=== PATIENT | female | born 1955 | race Caucasian/White ===

== ENCOUNTER → 2017-12-06 11:30 | Outpatient (CLI) | payer OTHER, SELFPAY ==
[2017-12-06 12:26] LABS: Hematocrit 37.3 % (37-47); Hemoglobin 12.5 g/dl (12.0-15.0); Mean Corp Hgb Conc 33.5 g/gl (32-36); Mean Corpuscular Hgb 29.1 pg (27.0-32.0); Mean Corpuscular Volume 86.9 fL (81-99); Mean Platelet Vol. 8.6 fl (6.2-12.0); Platelet Count 278 K/mm3 (150-450); RBC Distribution Width CV 12.9 % (11.6-14.6); Red Blood Count 4.29 M/mm3 (4.2-5.4); White Blood Count 5.1 K/mm3 (4.4-11.0)
[2017-12-06 12:28] LABS: Scan Indicated on CBC? Y/N NO
[2017-12-06 12:56] LABS: ALB/GLOB Ratio 1.1 RATIO (0.9-2.4); AST(SGOT) 15 U/L (15-37); Alanine Aminotransfer ALT/SGPT 22 U/L (13-56); Albumin, Serum 3.9 g/dL (3.2-5.0); Alkaline Phosphatase 65 U/L (45-117); Anion Gap 7 (5-15); BUN 9 mg/dL (7-18); BUN/Creat Ratio 11.6 RATIO (10-20); Calcium,Total 9.3 mg/dL (8.5-10.1); Chloride 97 mmol/L (98-107); Creatinine, Serum 0.78 mg/dL (0.55-1.02); EST Glomerular Filtration Rate 79 mL/min (>60); Est Glom Filt Rate - Afr Amer 96 mL/min (>60); Globulin 3.4 g/dL (2.2-4.2); Glucose 87 mg/dL (74-106); Magnesium 1.9 mg/dL (1.6-2.6); Phosphorus 4.2 mg/dL (2.5-4.9); Potassium 4.5 mmol/L (3.5-5.1); Protein, Total 7.3 g/dL (6.4-8.2); Sodium Level 134 mmol/L (136-145)
[2017-12-06 13:03] LABS: Vitamin B12 396 pg/mL (211-911)
== END ==
PROVIDERS: Family Provider Family Medicine; PCP Family Medicine; Visit Provider Nurse Practitioner Acute Care
DX: G40.909 Epilepsy, unspecified, not intractable, without status epilepticus (principal)
CPT/HCPCS: 36415; 80053; 80177; 82607; 83735; 84100; 85027

== ENCOUNTER → 2018-01-09 14:44 | Outpatient (CLI) | payer OTHER, SELFPAY ==
--- NOTE | 2018-01-09 14:51 | RAD_ITS ---
STUDY: X-RAY - LEFT KNEE REASON FOR EXAM: Female, 62 years old. Pain. Fall. TECHNIQUE: 3 view(s) of the knee. COMPARISON: None. FINDINGS: There is an IM patrick through the length of the femur. Normal visualized proximal tibia and fibula. Normal proximal tibiofibular articulation. There is no demonstrated fracture. Normal medial femorotibial compartment. Normal lateral femorotibial compartment. Normal patellofemoral articulation. There is no demonstrated joint effusion. The soft tissue structures are unremarkable. RAD/Knee 3 Views IMPRESSION: Normal x-ray examination of the knee. Electronically Signed: Aguila Quinteros MD at 15:44 EDT , Service support ,
--- NOTE | 2018-01-09 14:51 | RAD_ITS ---
STUDY: X-RAY - LEFT ANKLE REASON FOR EXAM: Female, 62 years old. Pain. Fell down steps yesterday. TECHNIQUE: The view(s) of the ankle. COMPARISON: None. FINDINGS: Normal visualized distal tibia and fibula. Normal medial and lateral malleoli. Normal tibiotalar articulation and ankle mortise. Normal visualized talus and calcaneus. The visualized subtalar, talonavicular, calcaneocuboid and tarsal articulations are normal. The soft tissue structures are unremarkable. RAD/Ankle min 3 Views IMPRESSION: Normal x-ray examination of the ankle. Electronically Signed: Yobani Anderson DO at 15:36 EDT Tel [phone], Service support ,
== END ==
PROVIDERS: Family Provider Family Medicine; PCP Family Medicine; Visit Provider Family Medicine
DX: S89.92XA Unspecified injury of left lower leg, initial encounter (principal); S99.912A Unspecified injury of left ankle, initial encounter; W19.XXXA Unspecified fall, initial encounter
CPT/HCPCS: 73562; 73610

== ENCOUNTER → 2018-10-06 09:54 | Outpatient (CLI) | payer MEDICARE, BC, SELFPAY ==
--- NOTE | 2018-10-06 09:57 | RAD_ITS ---
STUDY: X-RAY - LEFT HIP REASON FOR EXAM: Female, 63 years old. Pain without injury TECHNIQUE: Frontal pelvis, frontal and frog-leg lateral left hip, frontal and lateral views of the left femur. COMPARISON: None. FINDINGS: No acute intrapelvic process is evident. There is however a somewhat prominent stool burden distributed within the observed portions of the large bowel. Correlate for any evidence of underlying constipation. Normal appearance of the lumbar spine, sacrum, SI joints, iliac crests, pubic rami. Bilateral femoral medullary patrick fixation. On the right, dynamic screw fixation. On the left, now fixation of the medullary patrick below the trochanter. Screw fixation hardware of the the femoral neck is not present. Cortical thickening proximal left femoral diaphysis across a presumed old fracture, now well healed, with mild residual deformity. Distal femoral medullary patrick appropriately fixated. Knee joint unremarkable. Bilaterally, there are only mild degenerative features of the hip articulations, minimal joint margin osteophytic spurring, no significant joint space narrowing, no significant degenerative features of the articular surfaces. RAD/HIP, UNI W/ Pelvis 2-3 Views IMPRESSION: Minimal DJD of the hip joints. Postsurgical changes as described. Healed fracture of the proximal left femoral diaphysis with mild residual deformity and cortical thickening. Electronically Signed: Ashish Spear MD at 10:39 EST Tel , Service support ,
== END ==
PROVIDERS: Family Provider Family Medicine; PCP Family Medicine; Referring Provider Physician Assistant; Visit Provider Physician Assistant
DX: M25.552 Pain in left hip (principal)
CPT/HCPCS: 73502

== ENCOUNTER → 2018-12-30 | Outpatient (CLI) | payer MEDICARE, BC, SELFPAY ==
[2018-12-30 10:54] LABS: Anion Gap 7 (5-15); BUN 10 mg/dL (7-18); BUN/Creat Ratio 12.5 RATIO (10-20); Calcium,Total 9.9 mg/dL (8.5-10.1); Chloride 102 mmol/L (98-107); Cholesterol 189 mg/dL (200); EST Glomerular Filtration Rate 77 mL/min (>60); Est Glom Filt Rate - Afr Amer 93 mL/min (>60); Glucose 82 mg/dL (74-106); High Density Lipoprotein 74 mg/dL; Potassium 4.4 mmol/L (3.5-5.1); Sodium Level 140 mmol/L (136-145); Thyroid Stim Hormone (TSH) 1.95 uIU/mL (0.358-3.74); Triglycerides 62 mg/dL; Very Low Density Lipoprotein 12 mg/dL (5-40)
[2018-12-30 11:36] LABS: Vitamin D,25 Hydroxy 28.4 ng/mL (29.95-100.01)
== END | disposition home or self-care (01) ==
LOC: MFPLAB 09:17
PROVIDERS: Family Provider Family Medicine; PCP Family Medicine; Referring Provider Family Medicine; Visit Provider Family Medicine
DX: Z00.00 Encounter for general adult medical examination without abnormal findings (principal)
CPT/HCPCS: 36415; 80048; 80061; 82306; 84443

== ENCOUNTER → 2020-09-20 10:37 | Outpatient (CLI) | payer MEDICARE, BC, SELFPAY ==
[2020-03-17 10:28] VITALS: BMI 29.8
[2020-09-20 12:13] LABS: Absolute Lymphocyte Count 1.22 X10^3/uL (0.83-4.51); Basophil# 0.04 X10^3/uL; Eosinophil# 0.02 X10^3/uL; Eosinophils% 0.5 % (0-5); Hematocrit 37.7 % (37-47); Hemoglobin 11.8 g/dL (12.0-15.0); Lymphocyte # 1.22 X10^3/ul (4.0); Lymphocyte % 30.4 % (19-41); Mean Corp Hgb Conc 31.3 g/dL (32-36); Mean Corpuscular Hgb 27.4 pg (27.0-32.0); Mean Corpuscular Volume 87.5 fL (81-99); Mean Platelet Vol. 9.3 fl (6.2-12.0); Monocyte# 0.67 X10^3/uL; Monocyte% 16.7 % (0-10); NRBC Flagged by Analyzer 0 % (0-5); Neutrophil # 2.03 X10^3/uL (2.7-7.7); Neutrophil % 50.7 % (47-70); Platelet Count 231 K/mm3 (150-450); RBC Distribution Width CV 13.4 % (11.6-14.6); Red Blood Count 4.31 M/mm3 (4.2-5.4)
== END ==
PROVIDERS: PCP Family Medicine; Referring Provider Family Medicine; Visit Provider Internal Medicine Rheumatology
DX: R71.0 Precipitous drop in hematocrit (principal)
CPT/HCPCS: 36415; 85025

== ENCOUNTER → 2021-04-26 06:23 | Outpatient (CLI) | payer MEDICARE, BC, SELFPAY ==
[2020-03-17 10:28] VITALS: BMI 29.8
--- NOTE | 2021-04-26 06:47 | MRI_ITS ---
STUDY: MRI BRAIN WITH AND WITHOUT CONTRAST REASON FOR EXAM: Female, 65 years old. BITEMPORAL VISUAL FIELD DEFECT TECHNIQUE: Standardized multiplanar fat and water weighted pulse sequences were obtained. IV 14cc dotarem was administered for the contrast portion of the examination. COMPARISON: None. FINDINGS: Normal size of the ventricles and extra-axial spaces for the patient''s age. There are a limited number of small white matter hyperintensities, distributed throughout the deep white matter tracts of the cerebral hemispheres, consistent with mild chronic white matter ischemic changes. Focal encephalomalacia and gliosis in the posterior left parietal lobe consistent with a chronic infarct or There is no evidence for recent intracranial ischemia or other cause of cytotoxic edema on diffusion weighted imaging (DWI). Normal T2* images of the brain without demonstrated susceptibility artifact. There is no demonstrated hemosiderin stain. Normal bilateral basal ganglia. Normal thalami. There is no extra-axial fluid accumulation. Normal flow voids within the major intracranial circulation suggesting patency by spin echo criteria. Normal venous enhancement. There is no enhancing intra-axial or extra-axial abnormality. Normal sella turcica, pituitary gland, infundibular stalk, optic chiasm and hypothalamus. Normal tectal plate and pineal gland. Normal midbrain, makenna and medulla. Normal cerebellum. Normal basal cisterns. Normal bilateral temporal bones. Normal bilateral internal auditory canals. No demonstrated orbital abnormality, within the constraints of a routine brain study. Normal visualized paranasal sinuses. Normal calvarium and skull base. Normal visualized soft tissue structures. Normal visualized upper cervical spine. MRI/Brain W/WO Contrast IMPRESSION: Involutional changes of the brain, as described above. No acute infarct. Electronically Signed: Ashish Blackburn MD at 8:41 EDT Tel , Service support ,
[2021-04-26 07:01] LABS: CREATININE FINGERSTICK 1.1 mg/dL (0.55-1.02)
== END ==
PROVIDERS: PCP Family Medicine; Referring Provider Ophthalmology; Visit Provider Ophthalmology
DX: H53.40 Unspecified visual field defects (principal)
CPT/HCPCS: 70553; A9575

== ENCOUNTER → 2021-06-22 10:29 | Outpatient (CLI) | payer MEDICARE, BC, SELFPAY ==
[2021-06-22 12:56] LABS: Anion Gap 5 (5-15); BUN 15 mg/dL (7-18); BUN/Creat Ratio 20.3 RATIO (10-20); Calcium,Total 9.3 mg/dL (8.5-10.1); Chloride 107 mmol/L (98-107); Cholesterol 193 mg/dL (200); Creatinine, Serum 0.74 mg/dL (0.55-1.02); EST Glomerular Filtration Rate 83 mL/min (>60); Est Glom Filt Rate - Afr Amer 100 mL/min (>60); Glucose 76 mg/dL (74-106); High Density Lipoprotein 69 mg/dL; Potassium 4.5 mmol/L (3.5-5.1); Sodium Level 138 mmol/L (136-145); Triglycerides 61 mg/dL; Very Low Density Lipoprotein 12 mg/dL (5-40)
[2021-06-22 13:01] LABS: Vitamin D,25 Hydroxy 46.8 ng/mL
== END ==
PROVIDERS: PCP Family Medicine; Referring Provider Family Medicine; Visit Provider Family Medicine
DX: Z00.00 Encounter for general adult medical examination without abnormal findings (principal); E78.00 Pure hypercholesterolemia, unspecified; E55.9 Vitamin D deficiency, unspecified
CPT/HCPCS: 36415; 80048; 80061; 82306

== ENCOUNTER → 2022-02-28 | Outpatient (CLI) | payer MEDICARE, BC, SELFPAY ==
--- NOTE | 2022-02-28 15:19 | STRESSREP ---
Stress Test Report Pharmacologic myocardial perfusion stress test. 66-year-old lady with a history of chest pain. Stress protocol: Resting EKG demonstrates normal sinus rhythm with a rate of 93 bpm normal intervals are noted. Resting blood pressure is 142/90 mmHg. 0.4 mg of regadenoson was infused per usual protocol followed by Intravenous saline flush injection continuous EKG monitoring was performed. At rest there were no ST or T wave changes noted to suggest abnormal flow reserve and at peak infusion nonspecific ST changes were noted with did not meet the criteria for ischemia. No clinical angina was noted. Myocardial perfusion protocol. 12.0 mCi of technetium 99m sestamibi was injected at rest. 0.4 mg of regadenoson was infused per usual protocol. At peak infusion 33.0 mCi of technetium 99m sestamibi was injected stress images were obtained stress and rest images were reconstructed and compared in the short axis vertical long horizontal long axis. Gated images were also obtained per Perfusion SPECT analysis: Review of the stress images demonstrate normal uptake of tracer noted in all areas of the myocardium. The resting images similar demonstrate normal uptake of tracer noted in all areas of the myocardium. No areas of reversibility are noted to suggest ischemia and no previous infarct is noted. Gated SPECT analysis: The gated ejection fraction is over 75%. Conclusion: Normal pharmacologic myocardial perfusion stress test. Preserved ejection fraction.
== END | disposition home or self-care (01) ==
LOC: CVS 07:18
PROVIDERS: PCP Family Medicine; Referring Provider Family Medicine; Visit Provider Family Medicine
DX: R06.02 Shortness of breath (principal)
CPT/HCPCS: 78452; 93017; A9500; A4216; J2785

== ENCOUNTER → 2022-05-03 | Outpatient (CLI) | payer MEDICARE, BC, SELFPAY | END | disposition home or self-care (01) | PROVIDERS: PCP Family Medicine; Visit Provider Family Medicine | DX: Z20.822 Contact with and (suspected) exposure to COVID-19 (principal) | CPT/HCPCS: 87635; U0003; U0005 ==

== ENCOUNTER → 2022-05-08 | Outpatient (CLI) | payer MEDICARE, BC, SELFPAY ==
--- NOTE | 2022-05-08 14:46 | RAD_ITS ---
STUDY: X-RAY CHEST REASON FOR EXAM: Female, 66 years old. ACUTE BRONCHITIS TECHNIQUE: XR Chest 2 Views COMPARISON: None FINDINGS: There is no demonstrated pleural abnormality. There is a hiatal hernia. Normal size heart. Normal mediastinum and philip. Normal visualized pulmonary arteries. There is atherosclerotic calcification of the aortic arch with tortuosity. There are diffuse degenerative changes of the visualized thoracic spine. There is degenerative osteoarthritis of the bilateral shoulders. There is no demonstrated abnormality of the visualized soft tissue structures of the upper abdomen. RAD/Chest PA and Lateral IMPRESSION: There are no acute findings. Electronically Signed: Christian Dwyer MD at 16:52 EDT ,
== END | disposition home or self-care (01) ==
LOC: MTRAD 14:45
PROVIDERS: PCP Family Medicine; Referring Provider Family Medicine; Visit Provider Family Medicine
DX: J20.9 Acute bronchitis, unspecified (principal)
CPT/HCPCS: 71046

== ENCOUNTER → 2023-02-19 | Outpatient (CLI) | payer MEDICARE, BC, SELFPAY ==
[2023-02-19 12:37] LABS: Anion Gap 6 (5-15); BUN 16 mg/dL (7-18); BUN/Creat Ratio 15.7 RATIO (10-20); Calcium,Total 10.5 mg/dL (8.5-10.1); Chloride 104 mmol/L (98-107); Cholesterol 181 mg/dL (200); Creatinine, Serum 1.02 mg/dL (0.55-1.02); EST Glomerular Filtration Rate 57 mL/min (>60); Est Glom Filt Rate - Afr Amer 69 mL/min (>60); Glucose 96 mg/dL (74-106); High Density Lipoprotein 76 mg/dL; Potassium 4.4 mmol/L (3.5-5.1); Sodium Level 138 mmol/L (136-145); Triglycerides 58 mg/dL; Very Low Density Lipoprotein 12 mg/dL (5-40)
[2023-02-21 09:09] LABS: KEPPRA (LEVETIRACETAM) 22.8 ug/mL (10.0-40.0)
== END | disposition home or self-care (01) ==
LOC: MFPLAB 09:42
PROVIDERS: PCP Family Medicine; Visit Provider Family Medicine
DX: I10 Essential (primary) hypertension (principal); R56.9 Unspecified convulsions
CPT/HCPCS: 36415; 80048; 80061; 80177

== ENCOUNTER → 2023-08-12 | Outpatient (CLI) | payer MEDICARE, BC, SELFPAY ==
[2023-08-12 11:29] LABS: Absolute Lymphocyte Count 1.17 X10^3/uL (0.83-4.51); Absolute Neutrophil Count 2.2 X10^3/uL (2.0-7.7); Basophil# 0.05 X10^3/uL; Basophil% 1.2 % (0-1); Eosinophil# 0.01 X10^3/uL; Eosinophils% 0.2 % (0-5); Hematocrit 38.1 % (37-47); Hemoglobin 10.8 g/dL (12.0-15.0); Lymphocyte # 1.17 X10^3/ul (0.83-4.51); Lymphocyte % 28.9 % (19-41); Mean Corp Hgb Conc 28.3 g/dL (32-36); Mean Corpuscular Volume 77.8 fL (81-99); Mean Platelet Vol. 9.5 fl (6.2-12.0); Monocyte# 0.56 X10^3/uL; Monocyte% 13.8 % (0-10); NRBC Flagged by Analyzer 0 % (0-5); Neutrophil # 2.23 X10^3/uL (2.7-7.7); Neutrophil % 55.2 % (47-70); Platelet Count 257 K/mm3 (150-450); RBC Distribution Width CV 15.9 % (11.6-14.6); RBC Distribution Width SD 45.1 fl (35.1-43.9); White Blood Count 4.1 K/mm3 (4.4-11.0)
[2023-08-12 12:06] LABS: Anion Gap 7 (5-15); BUN 18 mg/dL (7-18); BUN/Creat Ratio 21.2 RATIO (10-20); Calcium,Total 8.9 mg/dL (8.5-10.1); Chloride 105 mmol/L (98-107); Cholesterol 171 mg/dL (200); Creatinine, Serum 0.85 mg/dL (0.55-1.02); EST Glomerular Filtration Rate 70 mL/min (>60); Est Glom Filt Rate - Afr Amer 85 mL/min (>60); Glucose 99 mg/dL (74-106); High Density Lipoprotein 79 mg/dL; Iron 26 ug/dL (50-170); Iron Binding Capacity,Total 404 ug/dL (250-450); PERCENT IRON SATURATION 6.4 % (15.0-55.0); Potassium 4.2 mmol/L (3.5-5.1); Sodium Level 138 mmol/L (136-145); Triglycerides 58 mg/dL; Very Low Density Lipoprotein 12 mg/dL (5-40)
== END | disposition home or self-care (01) ==
LOC: MFPLAB 09:29
PROVIDERS: PCP Family Medicine; Visit Provider Family Medicine
DX: D64.9 Anemia, unspecified (principal); R03.0 Elevated blood-pressure reading, without diagnosis of hypertension
CPT/HCPCS: 36415; 80048; 80061; 83540; 83550; 85025

== ENCOUNTER → 2023-10-17 | Outpatient (CLI) | payer MEDICARE, BC, SELFPAY ==
--- OUTSIDE RECORDS SUMMARY | 2023-10-17 12:20 | XMS RPT_ITS | CCD ---
Author Name Unknown Address [address] [facility] [address] [place] [address] Organization [facility] Care Team Providers Care Senior Application Software Engineer Name Role Phone Tanya GLASGOW, Shamir Cui Primary Care Provider 1( [phone] SHAMIR DORSEY Primary Care Unavailable DIANE LOCKHART JR Attending Unavailable Allergies Allergy Classification Reported Allergen(s) Allergy Type Date of Onset Reaction(s) Facility (7 sources) Dicyclomine; Translations: [DICYCLOMINE HCL] Drug Allergy 07-04-2005 [facility] Work Phone: (7 sources) LORazepam; Translations: [LORAZEPAM] Drug Allergy 07-04-2005 [facility] Work Phone: (7 sources) Naproxen; Translations: [NAPROXEN] Drug Allergy 06-20-2005 [facility] Work Phone: Medications Current Medications Medication Drug Class(es) Dates Sig (Normalized) Sig (Original) levETIRAcetam 1000 mg oral tablet (10 sources) Start: 03-21-2023 End: 06-23-2024 take 1 tablet by mouth twice daily levETIRAcetam (KEPPRA) 1,000 mg tablet Indications: Partial seizure (HCC) Take 1 tablet by mouth two times a day. 180 tablet 3 06/24/2023 06/23/2024 Active Completed/Discontinued Medications Medication Drug Class(es) Dates Sig (Normalized) Sig (Original) Nrsg-Tobpe-Chmrxai-Lisa t-Mv,Min 5,000 mcg-100mg -50 mg-250 mcg ORAL Tab (6 sources) take 1 tablet by once daily Dfge-Yjcym-Gwthczt-L ut-Mv,Min 5,000 mcg-100mg -50 mg-250 mcg ORAL Tab Take by mouth. Take one(1) tablet daily. 0 Active Problems Active Problems Problem Classification Problem Date Documented Da te Episodic/Chronic Disorders of lipid metabolism (6 sources) Hyperlipidemia; Translations: [Hyperlipidemia, unspecified] Onset: 9 07-18-2009 Chronic Epilepsy; convulsions (12 sources) Partial seizure; Translations: [Unspecified convulsions] Episodic Esophageal disorders (6 sources) Gastroesophageal reflux disease; Translations: [Gastro-esophageal reflux disease without esophagitis] Onset: 7 11-08-2006 Chronic Headache; including migraine (6 sources) Migraine; Translations: [Migraine, unspecified, not intractable, without status migrainosus] Onset: 9 07-18-2009 Chronic Mood disorders (6 sources) Chronic depressive personality disorder; Translations: [Dysthymic disorder] 07-04-2005 Chronic Osteoarthritis (6 sources) Degenerative joint disease involving multiple joints; Translations: [Polyosteoarthritis, unspecified] 07-04-2005 Chronic Other gastrointestinal disorders (6 sources) Irritable bowel syndrome; Translations: [Irritable bowel syndrome without diarrhea] 07-04-2005 Chronic Residual codes; unclassified (1 source) Insomnia; Translations: [Insomnia, unspecified] 06-24-2023 Episodic Past or Other Problems Problem Classification Problem Date Documented Date Episodic/Chronic Allergic reactions (18 sources) Radiation-induced dermatosis; Translations: [Other skin changes due to chronic exposure to nonionizing radiation] Onset: 05-31-2008 05-31-2008 Episodic Fracture of lower limb (6 sources) Closed fracture of shaft of femur; Translations: [Unspecified fracture of shaft of unspecified femur, initial encounter for closed fracture] Onset: 04-26-2009 04-26-2009 Episodic Mycoses (6 sources) Pityriasis versicolor; Translations: [Pityriasis versicolor] Onset: 05-31-2008 05-31-2008 Episodic Other and unspecified benign neoplasm (12 sources) Dysplastic nevus of trunk; Translations: [Melanocytic nevi of trunk] Onset: 12-05-2010 12-05-2010 Episodic Other and unspecified benign neoplasm (12 sources) Melanocytic nevus of trunk; Translations: [Melanocytic nevi of trunk] Onset: 12-05-2010 12-05-2010 Episodic Other and unspecified benign neoplasm (6 sources) Melanocytic nevus of face; Translations: [Melanocytic nevi of unspecified part of face] Onset: 08-23-2011 08-23-2011 Episodic Other and unspecified benign neoplasm (6 sources) Senile angioma; Translations: [Hemangioma of skin and subcutaneous tissue] Onset: 08-23-2011 08-23-2011 Episodic Other and unspecified benign neoplasm (6 sources) Melanocytic nevus of lower limb; Translations: [Melanocytic nevi of unspecified lower limb, including hip] Onset: 03-07-2012 03-07-2012 Episodic Other and unspecified benign neoplasm (6 sources) Dermatofibroma of left lower limb; Translations: [Other benign neoplasm of skin of left lower limb, including hip] Onset: 03-07-2012 03-07-2012 Episodic Other connective tissue disease (6 sources) Pain in limb; Translations: [Pain in unspecified limb] Onset: 04-26-2009 04-26-2009 Episodic Other connective tissue disease (6 sources) Lateral epicondylitis; Translations: [Lateral epicondylitis, unspecified elbow] Onset: 05-02-2009 05-02-2009 Episodic Other connective tissue disease (6 sources) Enthesopathy of hip region; Translations: [Other specified enthesopathies of unspecified lower limb, excluding foot] Onset: 05-12-2009 05-12-2009 Episodic Other inflammatory condition of skin (4 sources) Itching of skin; Translations: [Pruritus, unspecified] Onset: 12-14-2012 12-14-2012 Episodic Other inflammatory condition of skin (2 sources) Pruritus, unspecified; Translations: [Unspecified pruritic disorder] Onset: 12-14-2012 12-14-2012 Episodic Other skin disorders (6 sources) Disorder of skin pigmentation; Translations: [Disorder of pigmentation, unspecified] Onset: 05-31-2008 05-31-2008 Episodic Other skin disorders (6 sources) Seborrheic keratosis; Translations: [Other seborrheic keratosis] Onset: 12-05-2010 12-05-2010 Episodic Other skin disorders (12 sources) Skin tag; Translations: [Unspecified hypertrophic and atrophic conditions of skin] Onset: 12-05-2010 12-05-2010 Episodic Other skin disorders (6 sources) Solar lentigo; Translations: [Other melanin hyperpigmentation] Onset: 12-05-2010 12-05-2010 Episodic Other skin disorders (6 sources) Scar; Translations: [Scar conditions and fibrosis of skin] Onset: 08-23-2011 08-23-2011 Episodic Other skin disorders (6 sources) Hypertrophic scar; Translations: [Hypertrophic scar] Onset: 08-23-2011 08-23-2011 Episodic Other skin disorders (6 sources) Keloid scar; Translations: [Hypertrophic scar] Onset: 12-14-2012 12-14-2012 Episodic Spondylosis; intervertebral disc disorders; other back problems (6 sources) Low back pain; Translations: [Lumbago] Onset: 02-10-2009 02-10-2009 Episodic Viral infection (6 sources) Postherpetic neuralgia; Translations: [Other postherpetic nervous system involvement] Onset: 12-14-2012 12-14-2012 Episodic Results Test Name Value Interpretation Reference Range Facil ity Vital Signs Date Time Vital Sign Value Performing Clinician Faci lity 06-24-2023 14:20-0400 Body weight 74.21 kg Diane Lockhart Jr., MD Work Phone: [facility] 06-24-2023 14:20-0400 Diastolic blood pressure 84 mm[Hg] Diane Lockhart Jr., MD Work Phone: [facility] 06-24-2023 14:20-0400 Heart rate 94 /min Diane Lockhart Jr., MD Work Phone: [facility] 06-24-2023 14:20-0400 Respiratory rate 16 /min Diane Lockhart Jr., MD Work Phone: [facility] 06-24-2023 14:20-0400 SaO2% (BldA) [Mass fraction] 96 % Diane Lockhart Jr., MD Work Phone: [facility] 06-24-2023 14:20-0400 Systolic blood pressure 136 mm[Hg] Diane Lockhart Jr., MD Work Phone: [facility] Encounters Encounter Date Encounter Type Care Provider Facility Start: 06-24-2023 End: 06-24-2023 ambulatory SHAMIR DORSEY Facility:[facility] Start: 06-24-2023 End: 06-24-2023 Patient encounter procedure Diane Lockhart MD Work Phone: Neurology Procedures Date Procedure Procedure Detail Performing Clinician Start: 07-19-2009 Lipid 1996 panel - S sumit or Plasma Diane Lockhart Jr., MD Work Phone: Start: 06-30-2008 Mammography Diane whitehead Jr., MD Work Phone: Start: 04-04-2007 Colonoscopy Diane whitehead Jr., MD Work Phone: Plan of Treatment Date Care Activity Detail Author Start: 11-02-2025 Urine microalbumin profile [facility] Start: 05-10-2023 Covid-19 Vaccine () Covid-19 Vaccine () [facility] Start: 05-10-2023 Influenza vaccination INFLUENZA (#1) [facility] Start: 03-28-2023 DIABETES SCREEN DIABETES SCREEN [facility] Start: 03-28-2023 Diabetes Screening Diabetes Screenin g [facility] Start: 03-21-2023 End: 05-21-2023 CBC panel - Blood by Automated count CBC Lab Routine Partial seizure (HCC) Expected: 03/21/2023, Expires: 05/21/2023 [facility] Work Phone: Immunizations Immunization Date Immunization Notes Care Provider Fa meganty 06-08-2021 influenza, high-dose , quadrivalent vaccine (FLUZONE HIGH DOSE QUADRIVALENT) Diane Lockhart Jr., MD Work Phone: [facility] 12-14-2020 zoster vaccine recombinant Diane Lockhart Jr., MD Work Phone: [facility] 11-17-2020 COVID-19 vaccine, fu ll dose (MODERNA) Diane Lockhart Jr., MD Work Phone: [facility] 07-28-2020 zoster vaccine recombinant Diane Lockhart Jr., MD Work Phone: [facility] 06-10-2020 influenza, high-dose , quadrivalent vaccine (FLUZONE HIGH DOSE QUADRIVALENT) Diane Lockhart Jr., MD Work Phone: [facility] 04-28-2020 pneumococcal conjuga te vaccine, 13 valent Diane Lockhart Jr., MD Work Phone: [facility] 06-04-2019 influenza, seasonal, injectable Diane Lockhart Jr., MD Work Phone: [facility] 06-16-2018 influenza, seasonal, injectable Diane Lockhart Jr., MD Work Phone: [facility] 06-21-2017 influenza, seasonal, injectable Diane Lockhart Jr., MD Work Phone: [facility] 05-30-2016 influenza, seasonal, injectable Diane Lockhart Jr., MD Work Phone: [facility] 11-02-2015 tetanus toxoid, redu sophie diphtheria toxoid, and acellular pertussis vaccine, adsorbed Diane Lockhart Jr., MD Work Phone: [facility] 11-07-2010 pneumococcal polysaccharide vaccine, 23 valent Diane Lockhart Jr., MD Work Phone: [facility] 07-16-2007 influenza virus vacc ine, unspecified formulation Diane Lockhart Jr., MD Work Phone: [facility] Work Phone: 05-07-2007 tetanus toxoid, redu sophie diphtheria toxoid, and acellular pertussis vaccine, adsorbed Diane Lockhart Jr., MD Work Phone: [facility] Work Phone: 07-22-2006 influenza virus vacc ine, unspecified formulation Diane Lockhart Jr., MD Work Phone: [facility] Work Phone: Payers Date Payer Category Payer Medicare MEDICARE MEDICAR E A AND B [id number] 2018-Present [phone] [address] [address] [place] [address] Medicare [id number] 2018 Medicare MEDICARE MEDICAR E A AND B [id number] 2018-Present [phone] [place] [address] Medicare [id number] 2018 Medicare [id number] 2018 Medicare [id number] 2018 Unknown GREG GARZA ME DICARE SUPPLEMENT [id number] 2018-Present [phone] [address] [place] [address] Indemnity [id number] 2018 Unknown GREG GARZA ME DICARE SUPPLEMENT [id number] 2018-Present [phone] [address] [place] [id number] Indemnity [id number] Social History Date Type Detail Facility Tobacco smoking stat us NHIS Never smoked tobacco [facility] Start: 09-18-2021 End: 06-24-2023 Alcohol intake Current non-drinker of alcohol (finding) [facility] Start: 1955 Sex Assigned At Not on file [facility] Start: 08-14-2020 End: 06-24-2023 Gender identity Not on file [facility] Start: 08-14-2020 End: 06-24-2023 [facility] (1-10 0), lower number is lower risk Not on file [facility] Clinical Notes 04-24-2005 to 06-24-2023 Diane Lockhart Jr., MD - 06/24/2023 2:43 PM Teresa Marcus LPN - 06/24/2023 2:14 PM EDTTelephone Encounter - Diane Lockhart Jr., MD - 03/21/2023 10:46 AM EDT Note Date & Type Note Facility 06-24-2023 Note HNO ID: [id number] Author: Diane Lockhart Jr., MD Service: ? Author Type: Physician Type: Progress Notes Filed: 06/24/2023 3:28 PM Note Text: ESTABLISHED PATIENT VISIT CHIEF COMPLAINT: Follow up HISTORY OF PRESENT ILLNESS: Chidi Hardin is a 67 year old female, with a PMH significant for and per last office visit of 09/18/21: 1. Insomnia, unspecified type - ICD9: 780.52, ICD10: G47.00 (primary diagnosis) 2. Parasomnia, unspecified type - ICD9: 307.47, ICD10: G47.50 Patient not wanting any further workup for current or prior sleep complaints. With weight gain, concern for TARA, but pt declines HSAT. Discussed referral to sleep student records specialist for insomnia but pt declines. Patient wanting no additional sleep workup. 3. 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 Etiology remains unknown. Complex migraines vs seizures. Have treated as latter given additional medical history. AEDs overall improved frequency but of late no significant influence on symptoms. Not wanting additional workup. Will continue Keppra, but will lower dose to 500mg in AM and 1000mg in PM given pt feels no significant effect on condition at higher dosing. 4. Weight gain - ICD9: 783.1, ICD10: R63.5 Etiology unknown but appears to not be directly related to increase in meds at prior visit, as pt lowered dosing immediately and still gained weight over following months. Will check for possible thyroid abnormality with TSH and T4. Labs otherwise received and reviewed from Dr. Dorsey's office. Weight loss since last visit. Patient states episodes thought to be seizures are a little worse. States with some of them, she feels it coming, sits down, gets hot, and then gets waves that come over her and feels ill. Can be just sitting and it happens. Feels like heart rate speeds up. Wiped out afterwards. States feels like something occurs everyday but bad ones about once per week. Sometimes notes a certain smell before episode. No loc. Eye doctor had patient undergo MRI brain due to worsening of monocular vision deficit. Per patient, MRI unremarkable. Insomnia persist. Going to bed about MN and tired. Takes up to 2 hours to fall asleep. Sometimes gets up and watches tv. No discomfort. Cannot turn brain off. Tried Unisom since last visit. Wakes about 7-8AM. Feels read to go upon waking unless read bad night of difficulties falling asleep. REVIEW OF SYSTEMS GENERAL:No weight loss, malaise or fevers. HEENT:Negative for frequent or significant headaches, No changes in hearing or vision, no nose bleeds or other nasal problems RESPIRATORY: Negative for cough, wheezing or shortness of breath. CARDIOVASCULAR: Negative for chest pain, leg swelling or palpitations. GASTROINTESTINAL: Negative for abdominal discomfort, blood in stools or black stools or change in bowel habits GENITOURINARY: No history of dysuria, frequency or incontinence MUSCULOSKELETAL: Negative for joint pain or swelling, back pain or muscle pain. NEUROLOGIC:Negative for focal numbness or weakness, headaches and dizziness or syncope, vision changes, speech/languag changes - EXCEPT that as per HPI above. LAB/IMAGING: Those performed since patient's last visit have been reviewed. WBC (k/uL) Date Value 03/28/2020 6.59 RBC (m/uL) Date Value 03/28/2020 4.43 Hemoglobin (g/dL) Date Value 03/28/2020 12.7 Hematocrit (%) Date Value 03/28/2020 39.3 MCV (fL) Date Value 03/28/2020 88.7 MCH (pG) Date Value 03/28/2020 28.7 MCHC (g/dL) Date Value 03/28/2020 32.3 RDW-CV (%) Date Value 03/28/2020 13.3 Platelet Count (k/uL) Date Value 03/28/2020 264 MPV (fL) Date Value 03/28/2020 9.3 Glucose (mg/dL) Date Value 03/28/2020 82 BUN (mg/dL) Date Value 03/28/2020 15 Creatinine (mg/dL) Date Value 03/28/2020 0.81 Sodium (mmol/L) Date Value 03/28/2020 137 Potassium (mmol/L) Date Value 03/28/2020 4.3 Chloride (mmol/L) Date Value 03/28/2020 101 CO2 (mmol/L) Date Value 03/28/2020 23 Protein, Total (g/dL) Date Value 03/28/2020 7.3 Albumin (g/dL) Date Value 03/28/2020 4.7 Calcium (mg/dL) Date Value 03/28/2020 10.4 (H) Alkaline Phosphatase (U/L) Date Value 03/28/2020 71 Bilirubin, Total (mg/dL) Date Value 03/28/2020 0.3 AST (U/L) Date Value 03/28/2020 20 ALT (U/L) Date Value 03/28/2020 21 MEDICATIONS: Omnp-Rhcbm-Oudgybm-Lut-Mv,Min 5,000 mcg-100mg -50 mg-250 mcg ORAL Tab Take by mouth. Take one(1) tablet daily. (Patient not taking: Reported on 06/24/2023) Ca Cmb No.1-Vit [id number] (VITAMIN D-3) 120-1,000-10 mg-unit-mg ORAL Tab Take by mouth. Take one tablet daily Calcium Cmb 2-D3-Min Ukf01-Rpq (CITRACAL + BONE DENSITY) 300-200-13.5 mg-unit-mg ORAL Tab Take one(1) tablet two(2) times daily. chlordiazepoxide 5 mg ORAL capsule Take 1 capsule by mouth three times daily as needed. (more content not included)... [facility] 06-24-2023 Note HNO ID: [id number] Author: Teresa Ortega LPN Service: ? Author Type: ? Type: Progress Notes Filed: 06/24/2023 3:28 PM Note Text: There is no data to display for this encounter [facility] 06-24-2023 History of Present illness Narrative ESTABLISHED PATIENT VISIT CHIEF COMPLAINT: Follow up HISTORY OF PRESENT ILLNESS: Chidi Hardin is a 67 year old female, with a PMH significant for and per last office visit of 09/18/21: 1. Insomnia, unspecified type - ICD9: 780.52, ICD10: G47.00 (primary diagnosis) 2. Parasomnia, unspecified type - ICD9: 307.47, ICD10: G47.50 Patient not wanting any further workup for current or prior sleep complaints. With weight gain, concern for TARA, but pt declines HSAT. Discussed referral to sleep student records specialist for insomnia but pt declines. Patient wanting no additional sleep workup. 3. 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 Etiology remains unknown. Complex migraines vs seizures. Have treated as latter given additional medical history. AEDs overall improved frequency but of late no significant influence on symptoms. Not wanting additional workup. Will continue Keppra, but will lower dose to 500mg in AM and 1000mg in PM given pt feels no significant effect on condition at higher dosing. 4. Weight gain - ICD9: 783.1, ICD10: R63.5 Etiology unknown but appears to not be directly related to increase in meds at prior visit, as pt lowered dosing immediately and still gained weight over following months. Will check for possible thyroid abnormality with TSH and T4. Labs otherwise received and reviewed from Dr. Dorsey's office. Weight loss since last visit. Patient states episodes thought to be seizures are a little worse. States with some of them, she feels it coming, sits down, gets hot, and then gets waves that come over her and feels ill. Can be just sitting and it happens. Feels like heart rate speeds up. Wiped out afterwards. States feels like something occurs everyday but bad ones about once per week. Sometimes notes a certain smell before episode. No loc. Eye doctor had patient undergo MRI brain due to worsening of monocular vision deficit. Per patient, MRI unremarkable. Insomnia persist. Going to bed about MN and tired. Takes up to 2 hours to fall asleep. Sometimes gets up and watches tv. No discomfort. Cannot turn brain off. Tried Unisom since last visit. Wakes about 7-8AM. Feels read to go upon waking unless read bad night of difficulties falling asleep. REVIEW OF SYSTEMS GENERAL:No weight loss, malaise or fevers. HEENT:Negative for frequent or significant headaches, No changes in hearing or vision, no nose bleeds or other nasal problems RESPIRATORY: Negative for cough, wheezing or shortness of breath. CARDIOVASCULAR: Negative for chest pain, leg swelling or palpitations. GASTROINTESTINAL: Negative for abdominal discomfort, blood in stools or black stools or change in bowel habits GENITOURINARY: No history of dysuria, frequency or incontinence MUSCULOSKELETAL: Negative for joint pain or swelling, back pain or muscle pain. NEUROLOGIC:Negative for focal numbness or weakness, headaches and dizziness or syncope, vision changes, speech/languag changes - EXCEPT that as per HPI above. LAB/IMAGING: Those performed since patient's last visit have been reviewed. WBC (k/uL) Date Value 03/28/2020 6.59 RBC (m/uL) Date Value 03/28/2020 4.43 Hemoglobin (g/dL) Date Value 03/28/2020 12.7 Hematocrit (%) Date Value 03/28/2020 39.3 MCV (fL) Date Value 03/28/2020 88.7 MCH (pG) Date Value 03/28/2020 28.7 MCHC (g/dL) Date Value 03/28/2020 32.3 RDW-CV (%) Date Value 03/28/2020 13.3 Platelet Count (k/uL) Date Value 03/28/2020 264 MPV (fL) Date Value 03/28/2020 9.3 Glucose (mg/dL) Date Value 03/28/2020 82 BUN (mg/dL) Date Value 03/28/2020 15 Creatinine (mg/dL) Date Value 03/28/2020 0.81 Sodium (mmol/L) Date Value 03/28/2020 137 Potassium (mmol/L) Date Value 03/28/2020 4.3 Chloride (mmol/L) Date Value 03/28/2020 101 CO2 (mmol/L) Date Value 03/28/2020 23 Protein, Total (g/dL) Date Value 03/28/2020 7.3 Albumin (g/dL) Date Value 03/28/2020 4.7 Calcium (mg/dL) Date Value 03/28/2020 10.4 (H) Alkaline Phosphatase (U/L) Date Value 03/28/2020 71 Bilirubin, Total (mg/dL) Date Value 03/28/2020 0.3 AST (U/L) Date Value 03/28/2020 20 ALT (U/L) Date Value 03/28/2020 21 MEDICATIONS: Abvc-Stjiv-Iljomoh-Lut-Mv,Min 5,000 mcg-100mg -50 mg-250 mcg ORAL Tab Take by mouth. Take one(1) tablet daily. (Patient not taking: Reported on 06/24/2023) Ca Cmb No.1-Vit [id number]-[id number] (VITAMIN D-3) 120-1,000-10 mg-unit-mg ORAL Tab Take by mouth. Take one tablet daily Calcium Cmb 2-D3-Min Cud96-Erh (CITRACAL + BONE DENSITY) 300-200-13.5 mg-unit-mg ORAL Tab Take one(1) tablet two(2) times daily. chlordiazepoxide 5 mg ORAL capsule Take 1 capsule by mouth three times daily as needed. (Patient not taking: Reported on 06/24/2023) chlordiazepoxide-clidinium 5-2.5 mg ORAL per capsule Take 2 capsules by mouth twice daily. (Patient not taking: Reported on 01/06/2021 ) citalopram 20 mg ORAL tablet Take 20 mg by mouth once daily. Take one(1) tablet daily. FERROUS SULFATE, BULK, MISC hydrOXYchloroQUINE (PLAQUENIL) 200 mg tablet Take 200 mg by mouth once daily. For 30 days hyoscyamine SR (LEVBID) 0.375 mg 12 hr tablet Take 0.375 mg by mouth twice daily. (Patient not taking: Reported on 09/18/2021 ) levETIRAcetam (KEPPRA) 1,000 mg tablet Take 1 tablet by mouth twice daily. melatonin 3 mg tablet Take 2 tablets, 2 hours before bedtime. (Patient not taking: Reported on 09/18/2021 ) [place]-3 Fatty Acids-Vitamin E (FISH OIL) 1,000 mg ORAL Cap Take 1 capsule by mouth. Take one(1) tablet daily. (Patient not taking: Reported on 06/24/2023) OMEPRAZOLE 20 MG CAP, DELAYED RELEASE Take one(1) capsule daily. (Patient taking differently: Take 40 mg by mouth. ) simvastatin 20 mg tablet Take 20 mg by mouth daily at bedtime. Take one(1) tablet daily. sulfaSALAzine EC (AZULFIDINE EN) 500 mg EC tablet Take 3 tablets by mouth twice daily. 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 HEENT: NC/AT, nasal congestion absent, no oral lesions, membranes moist. NECK: ROM nml. Lungs: CTA bilaterally. CV: RRR nl S1, S2. Extr: No cyanosis, clubbing or edema. NEUROLOGICAL EXAM: General: Awake, alert, oriented x3 (person,place,time), speech fluent, no dysarthria; comprehension, naming, repetition intact. Fund of knowledge grossly normal. CN: PERRL, fundi with no evidence of papilledema, EOMI and without nystagmus, VFF to confrontation excetp monocular vision cut in R temp inferior quadrant (chronic), facial sensation and strength are normal and symmetric, hearing is intact to finger rub bilaterally, palate and tongue movements are intact and symmetric. SCM and trapezius strength normal. Motor: Normal tone, bulk and strength (5/5) bilaterally (throughout extremities x4). Coordination: FNF, INO, HTS intact. No tremors. Sensation: Light touch intact throughout. No evidence of neglect. Gait: Stable with normal stride and arm swing. Assessment and Plan: ASSESSMENT/PLAN: 1. Partial seizure (HCC) - ICD9: 780.39, ICD10: R56.9 (primary diagnosis) Patient continuing to have episodes. Chronic. Specific etiology unknown but have been treating as likely seizure for years. At times AED improve control but side effects. Keppra best tolerated. Multiple AEDs tried in the past. D/w pt increasing dose of Keppra to 1000mg - 1500mg, but pt declines. She states she can deal with the spells. Risk factors and precautions d/w pt. If she changes her mind, will call in adjusted Keppra dose. In meantime, refills provided for 1000mg BID. 2. Insomnia, unspecified type - ICD9: 780.52, ICD10: G47.00 Etiology uncertain. No RLS, pain, definite circadian disruption. Denies depression. +Racing thoughts. Psychophysiological should be consideration. D/w pt treatment options. Given chronic nature, and side effects with meds, do not feel appropriate to treat with a sleep aid as would only be masking symptoms and not treating underlying cause of chronic condition. Thus, will refer to behavioral sleep med for eval and treatment. Pt declined in past but willing to now be seen by [facility]. D/w pt means of improving sleep hygiene. Diane Lockhart MD F/u 6 months or sooner prn. I spent a total of 34 minutes on the date of the service which included preparing to see the patient, [id number] patient care, completing clinical documentation, obtaining and/or reviewing separately obtained history, performing a medically appropriate examination, counseling and educating the patient/family/caregiver, and ordering medications, tests, or procedures. There is no data to display for this encounter documented in this encounter [facility] 03-21-2023 Miscellaneous Notes Refill will be provided but please let pt know, unless already completed at OSH, that she will need updated lab work. I can order prior to appt (now). Diane Lockhart MD Please clarify with patient. Believe she was taking 500mg in AM and 1000mg in PM. Thank you, Diane Lockhart MD [facility] 09/18/21 with [facility] NOV 06/11/23 with [facility] Refill 02/21/22 with qty: 180 and 3 refills Angelica Garcia LPN [facility] Assessment/Plan ASSESSMENT/PLAN: 1. Insomnia, unspecified type - ICD9: 780.52, ICD10: G47.00 (primary diagnosis) 2. Parasomnia, unspecified type - ICD9: 307.47, ICD10: G47.50 Patient not wanting any further workup for current or prior sleep complaints. With weight gain, concern for TARA, but pt declines HSAT. Discussed referral to sleep student records specialist for insomnia but pt declines. Patient wanting no additional sleep workup. 3. 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 Etiology remains unknown. Complex migraines vs seizures. Have treated as latter given additional medical history. AEDs overall improved frequency but of late no significant influence on symptoms. Not wanting additional workup. Will continue Keppra, but will lower dose to 500mg in AM and 1000mg in PM given pt feels no significant effect on condition at higher dosing. 4. Weight gain - ICD9: 783.1, ICD10: R63.5 Etiology unknown but appears to not be directly related to increase in meds at prior visit, as pt lowered dosing immediately and still gained weight over following months. Will check for possible thyroid abnormality with TSH and T4. Labs otherwise received and reviewed from Dr. Dorsey's office. Diane Lockhart MD documented in this encounter [facility] 02-21-2022 Miscellaneous Notes Patient calling, states that prescription was sent to the wrong pharmacy. She needs [facility]ppra sent to [facility]. Order pended. Patient is completely out but pharmacy gave her a couple to get her by for today. Please advise. documented in this encounter [facility] 02-19-2022 Miscellaneous Notes Prescription filled as of 02/19/2022. Closing encounter. CURT Knowles Addressed in encounter dated 02/16/2022. Lyric Crenshaw LPN Patient will send in Cordium message to confirm mg she is not currently home. Same question as before needs answered. Thank you, Diane Lockhart MD Please confirm with pt. Last visit pt was taking 500mg in AM and 1000mg in PM. Thank you, Diane Lockhart MD Patient requesting refills as follows: Last office visit: 09/18/21 Next office visit: Due 01/16/22 Last refill: 01/06/2021 Pending Prescriptions Disp Refills LEVETIRACETAM 1,000 MG TABLET 90 tablet 0 Sig: TAKE 1 TABLET BY MOUTH IN THE MORNING AND 2 IN THE EVENING BEVERLEY: No Assessment and Plan: ASSESSMENT/PLAN: 1. Insomnia, unspecified type - ICD9: 780.52, ICD10: G47.00 (primary diagnosis) 2. Parasomnia, unspecified type - ICD9: 307.47, ICD10: G47.50 Patient not wanting any further workup for current or prior sleep complaints. With weight gain, concern for TARA, but pt declines HSAT. Discussed referral to sleep student records specialist for insomnia but pt declines. Patient wanting no additional sleep workup. 3. 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 Etiology remains unknown. Complex migraines vs seizures. Have treated as latter given additional medical history. AEDs overall improved frequency but of late no significant influence on symptoms. Not wanting additional workup. Will continue Keppra, but will lower dose to 500mg in AM and 1000mg in PM given pt feels no significant effect on condition at higher dosing. 4. Weight gain - ICD9: 783.1, ICD10: R63.5 Etiology unknown but appears to not be directly related to increase in meds at prior visit, as pt lowered dosing immediately and still gained weight over following months. Will check for possible thyroid abnormality with TSH and T4. Labs otherwise received and reviewed from Dr. Dorsey's office. Diane Lockhart MD Please review and advise. Lyric Crenshaw LPN Patient has been identified by name and date of : Yes Patient phones for refill(s): Pending Prescriptions Disp Refills LEVETIRACETAM 1,000 MG TABLET 90 tablet 0 Sig: TAKE 1 TABLET BY MOUTH IN THE MORNING AND 2 IN THE EVENING BEVERLEY: No Date of last office visit in primary care: 09/18/21 Future visit: none Last 2 Encounter Wt Readings: Date: Wt: 09/18/2021 79.8 kg (176 lb) 01/06/2021 75.3 kg (166 lb) Previous labs/tests for medication: Blood Pressure: BUN (mg/dL) Date Value 03/28/2020 15 Sodium (mmol/L) Date Value 03/28/2020 137 Last 1 Encounter BP Readings: Date: BP: 09/18/2021 138/72 Liver Function: ALT (U/L) Date Value 03/28/2020 21 AST (U/L) Date Value 03/28/2020 20 Please advise. Thank you. Paulina Peña RN documented in this encounter [facility] 02-19-2022 Miscellaneous Notes Changed to the patient reported amount. 1000mg two times a day. 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 documented as of this encounter (statuses as of 02/21/2022) [facility] History of Past illness Narrative* Problem Noted Date Resolved Date 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 documented as of this encounter (statuses as of 02/21/2022) [address]16-2005 History of Past illness Narrative* Problem Noted Date Diagnosed Date Resolved Date 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 1 documented as of this encounter (statuses as of 03/21/2023) [address]16-2005 History of Past illness Narrative* Problem Noted Date Diagnosed Date Resolved Date 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 1 documented as of this encounter (statuses as of 06/25/2023) [facility] note* Diagnosis Partial seizure (HCC) Other convulsions documented in this encounter [facility] note* Diagnosis Partial seizure (HCC) Other convulsions [facility] Diagnosis Partial seizure (HCC) Other convulsions [facility] Diagnosis Partial seizure (HCC) Other convulsions [facility] Diagnosis Partial seizure (HCC) Other convulsions [facility] Diagnosis Partial seizure (HCC)- Primary Other convulsions Insomnia, unspecified type documented in this encounter [facility] Summary Purpose Family History No Family History Records FoundNo Family History Records Found Advance Directives No Advanced Directives Records FoundDocuments on File Type Date Recorded Patient Community Health Planning Director Expl anation Advance Directive(s) Additional Source Comments INFORMATION SOURCE (unrecogn ized section and content) DATE CREATED AUTHOR AUTHOR'S ORGANIZ ATION 06/25/2023 [facility] Comments (unrecognize d section and content) In the event this informatio n is protected by the Federal Confidentiality of Alcohol and Drug Abuse Patient Records regulations: The Federal rules restrict any use of the information to criminally investigate or prosecute any alcohol or drug abuse patient.[facility] the event this information is protected by the Federal Confidentiality of Alcohol and Drug Abuse Patient Records regulations: The Federal rules restrict any use of the information to criminally investigate or prosecute any alcohol or drug abuse patient.[facility] the event this information is protected by the Federal Confidentiality of Alcohol and Drug Abuse Patient Records regulations: The Federal rules restrict any use of the information to criminally investigate or prosecute any alcohol or drug abuse patient.[facility] the event this information is protected by the Federal Confidentiality of Alcohol and Drug Abuse Patient Records regulations: The Federal rules restrict any use of the information to criminally investigate or prosecute any alcohol or drug abuse patient.[facility] the event this information is protected by the Federal Confidentiality of Alcohol and Drug Abuse Patient Records regulations: The Federal rules restrict any use of the information to criminally investigate or prosecute any alcohol or drug abuse patient.[facility] the event this information is protected by the Federal Confidentiality of Alcohol and Drug Abuse Patient Records regulations: The Federal rules restrict any use of the information to criminally investigate or prosecute any alcohol or drug abuse patient.[facility] Care Teams (unrecognized sec tion and content) Senior Application Software Engineer Relationship Specialty Start Date End Date Shamir Dorsey MD PCP - General Family Practice 03/19/16 Senior Application Software Engineer Relationship Specialty Start Date End Date Shamir Dorsey MD PCP - General Family Practice 03/19/16 Senior Application Software Engineer Relationship Specialty Start Date End Date Shamir Dorsey MD PCP - General Family Practice 03/19/16 Senior Application Software Engineer Relationship Specialty Start Date End Date Shamir Dorsey MD PCP - General Family Medicine 03/19/16 Reason for Visit (unrecogniz ed section and content) Reason Onset Date Comments Refill Request Refill Request 02/21/2022 Reason Comments Refill Request Reason Onset Date Comments Refill Request 03/19/2023 Reason Comments New Patient Pt reported inabilit y to fall asleep. FOR RECORDS PERTAINING TO PATIENTS WHO ARE OR HAVE BEEN ENROLLED IN A CHEMICAL DEPENDENCY/SUBSTANCEABUSE PROGRAM, SOME INFORMATION MAY BE OMITTED. This clinical summary was aggregated from multiple sources. Caution should be exercised in using it in the provision of clinical care. This summary normalizes information from multiple sources, and as a consequence, information in this document may materially change the coding, format and clinical context of patient data. In addition, data may be omitted in some cases. CLINICAL DECISIONS SHOULD BE BASED ON THE PRIMARY CLINICAL RECORDS. [facility] [facility] provides no warranty or guarantee of the accuracy or completeness of information in this document.
[2023-10-17 12:32] LABS: Absolute Lymphocyte Count 1.25 X10^3/uL (0.83-4.51); Absolute Neutrophil Count 2.6 X10^3/uL (2.0-7.7); Basophil# 0.07 X10^3/uL; Basophil% 1.5 % (0-1); Hematocrit 34.1 % (37-47); Hemoglobin 9.9 g/dL (12.0-15.0); Lymphocyte # 1.25 X10^3/ul (0.83-4.51); Lymphocyte % 26.7 % (19-41); Mean Corpuscular Hgb 21.5 pg (27.0-32.0); Mean Corpuscular Volume 74.1 fL (81-99); Mean Platelet Vol. 9.6 fl (6.2-12.0); Monocyte# 0.72 X10^3/uL; Monocyte% 15.4 % (0-10); NRBC Flagged by Analyzer 0 % (0-5); Neutrophil # 2.62 X10^3/uL (2.7-7.7); Platelet Count 264 K/mm3 (150-450); RBC Distribution Width CV 17.5 % (11.6-14.6); RBC Distribution Width SD 46.7 fl (35.1-43.9); White Blood Count 4.7 K/mm3 (4.4-11.0)
[2023-10-17 12:38] LABS: Vitamin D,25 Hydroxy 58.9 ng/mL
[2023-10-17 13:06] LABS: Erythrocyte Sedimentation Rate 7 mm/hr (0-30)
[2023-10-17 13:57] LABS: AST(SGOT) 22 U/L (15-37); Alanine Aminotransfer ALT/SGPT 28 U/L (13-56); Albumin, Serum 3.7 g/dL (3.2-5.0); Alkaline Phosphatase 58 U/L (45-117); Bilirubin, Direct 0.09 mg/dL (0.00-0.30); CRP < 2.90 mg/L (0.0-3.0); Creatinine, Serum 0.89 mg/dL (0.55-1.02); EST Glomerular Filtration Rate 67 mL/min (>60); Est Glom Filt Rate - Afr Amer 81 mL/min (>60); Globulin 3.4 g/dL (2.2-4.2); Protein, Total 7.1 g/dL (6.4-8.2)
== END | disposition home or self-care (01) ==
LOC: MFPLAB 10:52
PROVIDERS: PCP Family Medicine; Visit Provider Family Medicine
DX: M05.79 Rheumatoid arthritis with rheumatoid factor of multiple sites without organ or systems involvement (principal); Z79.899 Other long term (current) drug therapy; M81.0 Age-related osteoporosis without current pathological fracture; E55.9 Vitamin D deficiency, unspecified
CPT/HCPCS: 36415; 80076; 82306; 82310; 82565; 85025; 85652; 86140

== ENCOUNTER → 2024-07-21 | Outpatient (CLI) | payer MEDICARE, BC, SELFPAY ==
[2024-07-21 13:07] LABS: Anion Gap 8 (5-15); BUN 22 mg/dL (7-18); BUN/Creat Ratio 25.1 RATIO (10-20); Calcium,Total 9.7 mg/dL (8.5-10.1); Chloride 104 mmol/L (98-107); Cholesterol 180 mg/dL (200); Creatinine, Serum 0.88 mg/dL (0.55-1.02); EST Glomerular Filtration Rate 68 mL/min (>60); Est Glom Filt Rate - Afr Amer 82 mL/min (>60); Glucose 91 mg/dL (74-106); High Density Lipoprotein 88 mg/dL; Potassium 4.3 mmol/L (3.5-5.1); Sodium Level 136 mmol/L (136-145); Triglycerides 42 mg/dL; Very Low Density Lipoprotein 8 mg/dL (5-40)
== END | disposition home or self-care (01) ==
LOC: MFPLAB 09:44
PROVIDERS: PCP Family Medicine; Visit Provider Family Medicine
DX: E78.00 Pure hypercholesterolemia, unspecified (principal)
CPT/HCPCS: 36415; 80048; 80061

== ENCOUNTER → 2025-05-25 | Outpatient (CLI) | payer MEDICARE, BC, SELFPAY ==
[2025-05-25 12:52] LABS: AST(SGOT) 20 U/L (<=31); Alanine Aminotransfer ALT/SGPT 14 U/L (<=34); Albumin, Serum 4.3 g/dL (3.4-4.8); Alkaline Phosphatase 53 U/L (35-104); Anion Gap 13 (5-15); BUN 18 mg/dL (4-19); BUN/Creat Ratio 22.4 RATIO (10-20); Calcium,Total 10.2 mg/dL (7.6-11.0); Carbon Dioxide 22.7 mmol/L (21.0-32.0); Chloride 104 mmol/L (98-108); Cholesterol 173 mg/dL (<=200); Globulin 2.6 g/dL (2.2-4.2); Glucose 102 mg/dL (70-99); Low Density Lipoprotein Calc. 86 mg/dL; Potassium 4.2 mmol/L (3.3-5.1); Triglycerides 47 mg/dL; Very Low Density Lipoprotein 9 mg/dL (5-40); cholesterol:hdl ratio screen 2.22
== END | disposition home or self-care (01) ==
LOC: MFPLAB 10:23
PROVIDERS: PCP Family Medicine; Visit Provider Family Medicine
DX: E78.00 Pure hypercholesterolemia, unspecified (principal)
CPT/HCPCS: 36415; 80053; 80061